=== PATIENT | male | born 1970 | race Caucasian/White ===

== ENCOUNTER 2016-12-28 06:23 | Emergency (ER) | payer MEDICAID ==
[2016-12-28] MEDS ORDERED: FAMOTIDINE 20 MG TAB PO ONE (07:28)
[2016-12-28] MEDS ORDERED: diphenhydrAMINE 25 MG CAP PO ONE (07:28)
--- NOTE | 2016-12-28 07:33 | EDPHY ---
H & P Time Seen by Provider: 12/28/16 07:15 HPI/ROS: HPI Wasp sting to left hand. 46-year-old male by private vehicle. He reports yesterday he was stung in the left hand by some yellow jackets. He was stung dorsal aspect, webspace, just adjacent to his 2nd MCP joint. He complains of some swelling and feeling of tightness in his hand when he makes a fist because of this swelling. No fever. He has had no redness. He denies any warmth to the area. He is right-hand dominant. He has no other complaints. ROS: Constitutional: No fever, no chills. No weakness. Eyes: No discharge. No changes in vision. ENT: No sore throat. No nasal congestion or rhinorrhea. No difficulty swallowing. No voice changes. Respiratory: No cough. No shortness of breath. Cardiac: No chest pain, no palpitations. Gastrointestinal: No abdominal pain, no vomiting, no diarrhea. Musculoskeletal: No back pain. No neck pain. As above. Skin: No rashes. Neurological: No headache. No focal weakness or altered sensation. Past medical history: Rheumatoid arthritis. Social history: Here by himself. Nonsmoker. Physical Exam: General Appearance: Alert, no distress. This patient is responding to questions appropriately and in full sentences. This patient appears well- hydrated and well-nourished. No voice changes. No stridor. Eyes: Pupils equal and round no pallor or injection. No lid edema, erythema or injection. Left hand exam: Significant for 2 small less than 1 mm possible insect bite uribe, dorsal webspace adjacent to the radial aspect of the 2nd MCP joint of the left hand. He has some mild diffuse swelling dorsal aspect of the left hand. It is slightly involves the proximal aspect of the digits. It does not advance beyond the distal wrist. There is no associated erythema. No associated warmth. The left hand is neurovascularly intact. Neurological: Motor sensory function is grossly intact. Cranial nerves are normal. Gait is normal. Skin: Warm and dry, no rashes. Extremities are symmetrical. All joints range without pain or impingement. Psychiatric: No agitation. No depression. Database: EKG: Imaging: Procedures: Emergency department course: His vital signs were reviewed. He is mildly hypertensive but otherwise vital signs are unremarkable. Plan will be to treat him with antihistamines initially. He was given 50 mg of oral Benadryl in 40 mg of oral Pepcid in the emergency department. I do not suspect infection at this time. He feels comfortable going home and I feel he is safe for discharge. I discussed my concerns about developing infection. I will prescribe him Augmentin, 875 mg twice daily for 5 days. He has been instructed to start taking this if the swelling worsens and specifically if he develops redness and warmth to the dorsal aspect of his hand. He is then to return to the emergency department to be evaluated. Otherwise, is to follow up with his primary care physician in 1- 2 days. He endorses this plan. All of his questions were answered. He was discharged in good condition. Differential Diagnosis: The differential diagnosis on this patient includes but is not limited to insect bite to left hand. Left hand cellulitis, bony injury to left hand, facial infection unlikely. This represents a partial list of diagnoses considered. These considerations are based on history, physical exam, past history, reassessment and diagnostic testing. Smoking Status: Never smoked Constitutional: Initial Vital Signs Temperature (C) 37 C 12/28/16 06:25 Heart Rate 83 12/28/16 06:25 Respiratory Rate 16 12/28/16 06:25 Blood Pressure 147/91 H 12/28/16 06:25 O2 Sat (%) 97 12/28/16 06:25 O2 Delivery Mode Room Air Allergies/Adverse Reactions: No Known Allergies Allergy (Verified 12/28/16 06:29) Home Medications: Medication Instructions Recorded Amoxicillin/Clavulanate Pot 875 mg PO BID 5 Days 12/28/16 [Augmentin 875 mg tab] FOLIC ACID 12/28/16 Hydrochloraquin 12/28/16 Methotrexate 12/28/16 Medical Decision Making - Data Points Medications Given: Discontinued Medications Diphenhydramine HCl (Benadryl) 50 mg PO EDNOW ONE Stop: 12/28/16 07:29 Last Admin: 12/28/16 07:41 Dose: 50 mg Famotidine (Pepcid) 40 mg PO EDNOW ONE Stop: 12/28/16 07:29 Last Admin: 12/28/16 07:40 Dose: 40 mg Departure - Departure Disposition: Home, Routine, Self-Care Clinical Impression: Wasp sting, Wasp sting of left hand Condition: Good Instructions: Insect Bite or Sting (ED) Additional Instructions: Read and follow provided instructions. Follow-up with your primary care physician in 1-2 days for re-evaluation as discussed. Take medication as prescribed. Pepcid; this is an over the counter medication. Take 40 mg of this twice daily for the next 2-3 days only. Benadryl; this is an [id number] medication. Take 50 mg of this every 6-8 hours for the next 2-3 days only. Augmentin prescription; only fill this prescription for development of redness to the soft tissues of your left hand, warmth, increased swelling as discussed. Return to the emergency department for worsening pain, fever, swelling, development of redness as above, warmth over these tissues or other serious concerns. Referrals: Harleen Benoit, PAC [Primary Care Provider] - As per Instructions Prescriptions: Amoxicillin/Clavulanate Pot [Augmentin 875 mg tab] 875 mg PO BID 5 Days
[2016-12-28 07:52] VITALS: BP 140/88; PULSE 62; RESP 18; TEMP 98.4; O2SAT 96
== END 2016-12-28 07:50 | disposition home or self-care (01) ==
DX: T63.461A Toxic effect of venom of wasps, accidental (unintentional), initial encounter (principal)

== ENCOUNTER 2017-08-04 08:45 | Emergency (ER) | payer MEDICAID ==
[2017-08-04 08:49] VITALS: BP 120/77; PULSE 82; RESP 16; TEMP 97.5; O2SAT 97
[2017-08-04] MEDS ORDERED: BUPIVACAINE 0.5% 10 ML SDV ONE (09:06)
--- NOTE | 2017-08-04 09:07 | EDPHY ---
H & P Time Seen by Provider: 08/04/17 09:00 HPI/ROS: CHIEF COMPLAINT: Possible foreign body right ear HISTORY OF PRESENT ILLNESS: 46-year-old male was using a Q-tip this morning on the cotton component stated in his right ear. He was picking at the area notes small amount of bleeding at the introitus of the eac. PHYSICAL EXAM (Prior to examination, patient consented to physical exam, hands were washed and my usual and customary physical exam procedures followed) 1) GENERAL: Well-developed, well-nourished, alert and oriented. Appears to be in no acute distress. 2) HEAD: Normocephalic 3) ENT: Right ear: There is dried blood at the introitus the right EAC. There is a visible white foreign body consistent with Q-tip. No foul smell. No otorrhea. 4) LUNGS: Breathing comfortably. Smoking Status: Never smoked Constitutional: Initial Vital Signs Temperature (C) 36.4 C 08/04/17 08:48 Heart Rate 82 08/04/17 08:48 Respiratory Rate 16 08/04/17 08:48 Blood Pressure 120/77 08/04/17 08:48 O2 Sat (%) 97 08/04/17 08:48 O2 Delivery Mode Room Air Allergies/Adverse Reactions: No Known Allergies Allergy (Verified 08/04/17 08:46) Home Medications: Medication Instructions Recorded FOLIC ACID 12/28/16 Hydrochloraquin 12/28/16 Methotrexate 12/28/16 MDM/Departure - MDM Procedures: Procedure: Foreign body removal Indication: Foreign body right external auditory canal Patient consented to removal, using bayonet forceps I was able to visualize and easily removed the Q-tip foreign body. The ear was then re-examined by myself, no foreign bodies visualized, tympanic membrane appears to be grossly intact with no signs of infection or perforation. Patient tolerated procedure well ED Course/Re-evaluation: Care of patient under supervision of [secondary] supervising physician Dr Britt . - Depart Disposition: Home, Routine, Self-Care Clinical Impression: Foreign body of ear, right Qualifiers: Encounter type: initial encounter Qualified Code(s): T16.1XXA - Foreign body in right ear, initial encounter Condition: Good Instructions: Ear Foreign Body (ED) Additional Instructions: Return to the ER if you have discharge from the ear. Do not place foreign objects in your ear in the future. Referrals: Harleen Benoit, PAC [Primary Care Provider] - 1-2 days without fail
== END 2017-08-04 09:15 | disposition home or self-care (01) ==
DX: T16.1XXA Foreign body in right ear, initial encounter (principal); X58.XXXA Exposure to other specified factors, initial encounter